=== PATIENT | male | born 1990 | race Caucasian/White ===

== ENCOUNTER 2017-04-21 18:18 | Emergency (ER) | payer OTHER ==
[2017-04-21 18:30] VITALS: BP 129/76
--- NOTE | 2017-04-21 19:05 | XRAY Preliminary Report ---
Exam: XR Elbow 3 View LT IMPRESSION: Normal elbow radiography. No acute or healing fracture. [facility] SITE ID: [id number]
--- NOTE | 2017-04-21 19:07 | XRAY Report ---
EXAM: LEFT ELBOW RADIOGRAPHY EXAM DATE: 04/21/2017 06:50 PM. CLINICAL HISTORY: Elbow injury 1 month ago. Pain. COMPARISON: None. TECHNIQUE: 3 views. FINDINGS: Bones: Normal. No fractures or bone lesions. No periosteal reaction. Joints: Normal. No effusion. No subluxation. Soft Tissues: Normal. No soft tissue swelling. IMPRESSION: Normal elbow radiography. No acute or healing fracture. [facility] Referring Provider Line: [phone] SITE ID: [id number]
--- NOTE | 2017-04-21 20:17 | ED Physician Documentation ---
PD HPI UPPER EXT INJURY - Stated complaint Stated Complaint: L ELBOW PX - Chief complaint Chief Complaint: Ext Problem - History obtained from History obtained from: Patient - History of Present Illness Location: Left, Elbow Type of injury: Fall (A month ago he hit his elbow on a rock, and has had persistent pain over the olecranon and just proximal to that ever since. No limited range of motion.) Review of Systems Constitutional: reports: Reviewed and negative Throat: reports: Reviewed and negative Cardiac: reports: Reviewed and negative PD PAST MEDICAL HISTORY - Past Medical History Past Medical History: No - Past Surgical History Past Surgical History: No - Present Medications Home Medications: Ambulatory Orders Medication Instructions Recorded Confirmed Esomeprazole Magnesium [Nexium] 10 mg PO DAILY 04/21/17 04/21/17 - Allergies Allergies/Adverse Reactions: Allergies Allergy/AdvReac Type Severity Reaction Status Date / Time No Known Drug Allergies Allergy Verified 04/21/17 18:30 - Social History Does the pt smoke?: No Smoking Status: Never smoker Does the pt drink ETOH?: No Does the pt have substance abuse?: No - Immunizations Immunizations are current?: Yes PD ED PE NORMAL - Vitals Vital signs reviewed: Yes - General General: Alert and oriented X 3, No acute distress - Extremities Extremities: Other (Left elbow nontender, not swollen, full range of motion.) - Neuro Neuro: Alert and oriented X 3, Normal speech, Other (Normal interosseous strength, thumb extension, 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, 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 at 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 left wrist, normal radial pulses.) - Psych Psych: Normal mood, Normal affect Results - Vitals Vitals: Vital Signs - 24 hr 04/21/17 18:27 Temperature 36.3 C L Heart Rate 82 Respiratory 16 Rate Blood Pressure 129/76 O2 Saturation 98 Oxygen O2 Source Room air - Rads (name of study) 3 views left elbow Radiology: EMP read contemporaneously (normal) Departure - Departure Disposition: 01 Home, Self Care Clinical Impression: Contusion of left elbow, initial encounter Qualifiers: Encounter type: initial encounter Qualified Code(s): S50.02XA - Contusion of left elbow, initial encounter Condition: Good Record reviewed to determine appropriate education?: Yes Instructions: ED Contusion Elbow Ch Comments: Ibuprofen as needed for pain. [place]
== END 2017-04-21 20:24 | disposition home or self-care (01) ==
LOC: ED 18:18
DX: S50.02XA Contusion of left elbow, initial encounter (principal); W01.198A Fall on same level from slipping, tripping and stumbling with subsequent striking against other object, initial encounter
CPT/HCPCS: 99283